=== PATIENT | female | born 1945 | race Caucasian/White ===

== ENCOUNTER 2022-01-13 16:41 | Emergency (ER) | payer MEDICARE ==
[2022-01-13 18:14] LABS: HEMOGLOBIN 12.2 gm/dl (12.3-15.3); RED BLOOD COUNT 4.15 M/UL (4.00-5.10)
[2022-01-13 18:46] LABS: BUN/CREATININE RATIO 21 (0-10)
== END 2022-01-14 00:28 | disposition left against medical advice (07) ==
LOC: ER1 16:41
PROVIDERS: Physician Assistant
DX: R07.9 Chest pain, unspecified (principal); E78.5 Hyperlipidemia, unspecified; I10 Essential (primary) hypertension; Z90.49 Acquired absence of other specified parts of digestive tract
CPT/HCPCS: 71045; 80053; 82550; 82553; 84484; 85025; 93005; 99283

== ENCOUNTER → 2022-03-10 | Outpatient (CLI) | payer MEDICARE | LOC: CT 13:33 | PROVIDERS: Surgery | DX: K63.89 Other specified diseases of intestine (principal); K44.9 Diaphragmatic hernia without obstruction or gangrene; N28.1 Cyst of kidney, acquired | CPT/HCPCS: 36415; 80053; Q9967 ==